=== PATIENT | male | born 1950 | race Caucasian/White ===

== ENCOUNTER 2020-01-15 07:30 | Outpatient (CLI) | payer MEDICARE, BC, SELFPAY ==
--- NOTE | 2020-01-15 07:44 | ECHO_ITS ---
Patient Info Name: Fransico Levin Age: 69 years : 1950 Gender: Male Ht: 70 in Wt: 193 lbs BSA: 2.10 m2 HR: 53 bpm BP: 137 / 88 mmHg Heart Rhythm: Sinus Rhythm Technical Quality: Good Exam Date: 01/15/2020 7:56 AM Exam Location: [facility] Patient Status: Outpatient Admit Date: 01/15/2020 Staff Ordering Physician: Joselin Serna NP Auction Clerk: Elaine Sheets RDCS Attending Provider: Joselin Serna NP Referring Physician: Kareem NORTH; Exam Type: CA echo doppler color flow Study Info Indications R42 - Dizziness and giddiness Complete two-dimensional, color flow and Doppler transthoracic echocardiogram is performed. Summary 1. Left ventricular chamber dimension is normal. 2. Left ventricular systolic function is normal, estimated at 55-60%. 3. The left ventricular diastolic function is grade II diastolic dysfunction. 4. E/e' 10 is mildly elevated. 5. Left atrial chamber dimension is mildly enlarged. 6. The mitral valve has mildly calcified annulus. 7. There is trace mitral valve regurgitation. 8. No pulmonary hypertension, estimated pulmonary arterial systolic pressure is 32 mmHg. 9. There is mild pulmonic regurgitation. 10. The aortic root size at the sinus of Valsalva is mildly dilated at 4.2 cm. Left Ventricle E/e' 10 is mildly elevated. Left ventricular chamber dimension is normal. Left ventricular systolic function is normal, estimated at 55-60%. The left ventricular diastolic function is grade II diastolic dysfunction. Right Ventricle Right ventricular chamber dimension is normal. Right ventricular systolic function is normal. Left Atria Left atrial chamber dimension is mildly enlarged. Right Atria Right atrial chamber dimension is normal. Aortic Valve The aortic valve is trileaflet. There is no aortic valve stenosis. There is no aortic valve regurgitation. Pulmonic Valve There is mild pulmonic regurgitation. Mitral Valve The mitral valve has mildly calcified annulus. There is no mitral valve stenosis. There is trace mitral valve regurgitation. Tricuspid Valve There is no tricuspid valve regurgitation. No pulmonary hypertension, estimated pulmonary arterial systolic pressure is 32 mmHg. Pericardium/Pleural There is no pericardial effusion. Inferior Vena Cava Normal inferior vena cava with >50% collapse upon inspiration consistent with normal right atrial pressure, 5 mmHg. Aorta The aortic root size at the sinus of Valsalva is mildly dilated at 4.2 cm. Left Ventricular Outflow Tract Name Value Normal LVOT 2D LVOT Diameter 2.3 cm LVOT Doppler LVOT Peak Gradient 4 mmHg LVOT Mean Gradient 2 mmHg LVOT VTI 22 cm LVOT VTI/AV VTI Ratio 0.7 LVOT Stroke Volume 89 ml LVOT CO 15.5 l/min LVOT CI 7.4 l/min/m2 Pulmonic Valve Name
== END 2020-01-15 07:31 | disposition home or self-care (01) ==
PROVIDERS: PCP Internal Medicine; Visit Provider Nurse Practitioner
DX: R42 Dizziness and giddiness (principal); R00.2 Palpitations
CPT/HCPCS: 93306

== ENCOUNTER 2020-02-04 08:51 | Outpatient (CLI) | payer MEDICARE, BC, SELFPAY ==
--- NOTE | 2020-02-07 12:44 | WPDHOLTEREM ---
Holter/Event Monitor Holter/Event Monitor Date of procedure: 02/04/20 Procedure Type: 48 hour holter monitor Indications: Palpitations Conclusion: 1. 48 hour holter monitor on 02/04/20. 2. Predominant rhythm is sinus rhythm. HR range 40-106 bpm; average HR 62 bpm. 3. There are 222 premature supraventricular complexes, 11 supraventricular couplets. There is one supraventricular tachycardia at 148 bpm lasting 4 beats. 4. There are 955 premature ventricular complexes, 33 ventricular couplets, 1 ventricular triplet, 17,479 ventricular bigeminy and 4 ventricular trigeminy. No ventricular tachycardia. 1 episode of 4 beats of polymorphic PVC's with average HR 101 bpm. 5. No sinoatrial or atrioventricular blocks. No sigificant pauses greater than 2 seconds. 6. Patient reports symptoms of palpitations, dizziness which demonstrate sinus rhythm, HR range 47-86 bpm and majority had ventricular bigeminy.
== END 2020-02-04 08:52 | disposition home or self-care (01) ==
PROVIDERS: PCP Internal Medicine; Visit Provider Internal Medicine Cardiovascular Disease
DX: R00.2 Palpitations (principal)
CPT/HCPCS: 93225; 93226

== ENCOUNTER 2020-03-02 09:51 | Outpatient (CLI) | payer MEDICARE, BC, SELFPAY ==
--- NOTE | 2020-03-02 09:56 | EST_ITS ---
Patient Info Name: Fransico Levin Age: 69 years : 1950 Gender: Male Ht: 70 in Wt: 194 lbs BSA: 2.10 m2 Exam Date: 03/02/2020 10:41 AM [facility] Patient Status: Outpatient Admit Date: 03/02/2020 Staff Ordering Physician: Stanley Padron DO Litigation Specialist: Abigail Simmons RDCS Attending Provider: STANLEY PADRON DO Referring Physician: Sunil HOBSON; Exercise Technologist: Joleen Flores RDCS Exercise Physician: Stanley Padron DO Exam Type: CA stress echo Study Info Indications R00.2 - Palpitations Treadmill exercise stress echocardiogram is performed. Summary 1. 1. Negative Yuval exercise stress test for ischemic ST changes by ECG criteria. 2. 2. Good functional capacity, achieving 12 METs of workload. 3. 3. Slow HR response to exercise, probably due to beta blockade. 4. 4. Appropriate HR recovery at 1 minute post exercise. 5. 5. Negative stress echocardiogram for ischemia by wall motion analysis. 6. 6. Patient informed of the above results. Stress Echo Findings Left Ventricle Appropriate increase in LV endocardial thickening with systole. Appropriate augmentation of contractility with systole. No wall motion abnormality. Left Ventricle Normal LV systolic function, no wall motion abnormality. Protocol: Yuval Stress ECG Details Stage: REST Duration (min): 5 min : 2 sec Speed (mph): 0.0 Grade (%): 0 HR (bpm): 42 SBP (mmHg): 114 DBP (mmHg): 74 METS: --- Stage: REST Duration (min): 18 min : 39 sec Speed (mph): 0.0 Grade (%): 0 HR (bpm): 48 SBP (mmHg): 114 DBP (mmHg): 74 METS: --- Stage: STAGE 1 Duration (min): 1 min : 0 sec Speed (mph): 1.7 Grade (%): 10 HR (bpm): 65 SBP (mmHg): 114 DBP (mmHg): 74 METS: --- Stage: STAGE 1 Duration (min): 2 min : 0 sec Speed (mph): 1.7 Grade (%): 10 HR (bpm): 75 SBP (mmHg): 114 DBP (mmHg): 74 METS: --- Stage: STAGE 1 Duration (min): 3 min : 0 sec Speed (mph): 1.7 Grade (%): 10 HR (bpm): 75 SBP (mmHg): 127 DBP (mmHg): 58 METS: --- Stage: STAGE 2 Duration (min): 1 min : 0 sec Speed (mph): 2.5 Grade (%): 12 HR (bpm): 83 SBP (mmHg): 127 DBP (mmHg): 58 METS: --- Stage: STAGE 2 Duration (min): 2 min : 0 sec Speed (mph): 2.5 Grade (%): 12 HR (bpm): 91 SBP (mmHg): 127 DBP (mmHg): 59 METS: --- Stage: STAGE 2 Duration (min): 3 min : 0 sec Speed (mph): 2.5 Grade (%): 12 HR (bpm): 94 SBP (mmHg): 127 DBP (mmHg): 59 METS: --- Stage: STAGE 3 Duration (min): 1 min : 0 sec Speed (mph): 3.4 Grade (%): 14 HR (bpm): 100 SBP (mmHg): 157 DBP (mmHg): 61 METS: --- Stage: STAGE 3 Duration (min): 2 min : 0 sec Speed (mph): 3.4 Grade (%): 14 HR (bpm): 99 SBP (mmHg): 157 DBP (mmHg): 61 METS: --- Stage: STAGE 3 Duration (min): 3 min : 0 sec Speed (mph): 3.4 Grade (%): 14 H
== END 2020-03-02 09:52 | disposition home or self-care (01) ==
LOC: ANHCARD 09:52
PROVIDERS: PCP Internal Medicine; Visit Provider Internal Medicine Cardiovascular Disease
DX: R00.2 Palpitations (principal)
CPT/HCPCS: 93351

== ENCOUNTER 2021-04-02 14:52 | Outpatient (RCR) | payer MEDICARE, BC, SELFPAY ==
--- NOTE | 2021-04-02 15:43 | PTOPEVAL ---
PHYSICAL THERAPY EVALUATION/DISCHARGE Thank you for referring Fransico Levin to [facility].? The patient was evaluated for the dx of BPPV and discharged after assessment due to full recovery of symptoms. Please review, sign, date and return this plan of care BETH. I agree with and certify that the following plan of care is medically necessary. Referring Physician Date Admitting Provider: Attending Provider: Joselin Serna NP Referring Provider: *PT Outpatient Evaluation/Discharge Start: 04/02/21 14:10 Freq: Status: Active Protocol: Document 04/02/21 15:03 MLV (Rec: 04/02/21 15:29 MLV [id number]) Therapy Assessment Status Assessment Status Assessment Status Evaluation Evaluation Information Problem Diagnosis Dizziness Onset 1 month ago Cause no trauma Additional Evaluation Detail Pt woke up and the room started spinning. It lasted less than a minute. The pt had another event in the shower the next am that was also short lived. The patient has had a few more since then. The pt went to the MD; and took meclazine and did the exercise given by the MD. The pt has been clear of symptoms since then w/o meds or exercise but wanted to be assessed to assure no reoccurrences. Subjective Information Pt is retired, and rides a Query Text:As Reported By Patient/ bicycle regularly (outdoor) Family and has not had any symptoms with riding. Diagnostic Tests MRI For This Problem Yes: brain clear Pain Assessment Timing of Pain Assessment Timing of Pain Assessment Assessment Self Report Self Report Pain Level 0 Pain Score Pain Score 0: Self Report Upper Extremity Range of Motion General Upper Extremity Range of Motion Reason Not Measured WFL/Left,WFL/Right Lower Extremity Range of Motion General Lower Extremity Range of Motion Reason Not Measured WFL/Left,WFL/Right Lower Extremity Muscle Strength Testing General Lower Extremity Strength Reason Not Measured WNL/Left,WNL/Right Upper Extremity Muscle Strength Testing General Upper Extremity Strength Reason Not Measured WNL/Left,WNL/Right Gait Assessment Gait Pattern Assessment Gait Pattern No Deviations/Normal Vestibular Evaluation Vestibular Medical Information Past Vestibular History Cardiac Changes Medical History Comments on meds for heart and is
== END 2021-06-16 08:54 | disposition home or self-care (01) ==
LOC: ANHPT 14:52
PROVIDERS: PCP Internal Medicine; Visit Provider Nurse Practitioner
DX: R42 Dizziness and giddiness (principal)
CPT/HCPCS: 97161

== ENCOUNTER → 2021-05-08 02:40 | Outpatient (CLI) | payer MEDICARE, BC, SELFPAY ==
[2021-05-08 19:28] LABS: SARS-CoV-2 RNA PCR Negative
== END ==
PROVIDERS: PCP Internal Medicine; Visit Provider Nurse Practitioner
DX: Z20.822 Contact with and (suspected) exposure to COVID-19 (principal); R09.89 Other specified symptoms and signs involving the circulatory and respiratory systems
CPT/HCPCS: C9803; U0003; U0005

== ENCOUNTER → 2021-10-15 07:44 | Outpatient (CLI) | payer MEDICARE, BC, SELFPAY ==
--- NOTE | ~2021-10-15 | MR_ITS ---
EXAMINATION: MR lumbar spine wo [facility] EXAM DATE: 10/15/2021 08:22 INDICATION: Chronic right sided low back pain without sciatica. TECHNIQUE: Multi-sequential, multiplanar MR images of the lumbar spine were obtained without contrast . Sagittal T1, T2, T2 fat saturation images. Axial T2 weighted images. Comparison is made to prior examination from 03/23/2015. FINDINGS: Moderate to severe disc disease at L3-4 and L4-5, mild at the other lumbar levels. Moderate disc disease at T11-12. Mild upper lumbar dextroscoliosis, lower lumbar levoscoliosis. There are mil d subacute appearing compression fractures at the L3-4 and L4-5 endplates. The conus medullaris termi nates at the L1 level and has normal signal intensity and morphology. Paraspinal soft tissue is unre markable. Fluid signal intensity lesion superior pole left kidney measuring 2 cm. Level by level evaluation: T12-L1: There is a minimal diffuse disc bulge. Facet arthropathy: Minimal. Neural foraminal stenosis: No stenosis. Central canal stenosis: No stenosis. L1-L2: Disc does not extend beyond the endplate margin. Facet arthropathy: Minimal. Neural foraminal stenosis: No stenosis. Central canal stenosis: No stenosis. L2-L3: There is a mild to moderate diffuse disc bulge. Facet arthropathy: Mild to moderate. Neural foraminal stenosis: Mild bilateral. Central canal stenosis: Mild. L3-L4: There is a moderate diffuse disc bulge. Facet arthropathy: Moderate . Ligamentum flavum enlargement. Neural foraminal stenosis: Moderate to severe left, mild to moderate right. Central canal stenosis: Moderate. L4-L5: There is a moderate to large diffuse disc bulge. Facet arthropathy: Moderate . Ligamentum flavum enlargement. Neural foraminal stenosis: Severe right moderate left. Central canal stenosis: Moderate to severe. L5-S1: There is a mild diffuse disc bulge. Facet arthropathy: Mild. Neural foraminal stenosis: No stenosis. Central canal stenosis: No stenosis. Compared to 2014, significant interval progression spondylosis. IMPRESSION: 1. Advanced spondylosis L3-4 and L4-5 with the right L4-5 neural foramina most narrowed followed by the left L3-4 neural foramina. 2. Mild subacute appearing compression fractures L3-4 and L4-5 endplates. 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
== END ==
PROVIDERS: PCP Internal Medicine
DX: M54.50 Low back pain, unspecified (principal); G89.29 Other chronic pain; M47.816 Spondylosis without myelopathy or radiculopathy, lumbar region; M48.56XA Collapsed vertebra, not elsewhere classified, lumbar region, initial encounter for fracture
CPT/HCPCS: 72148

== ENCOUNTER 2022-10-03 14:07 | Outpatient (CLI) | payer MEDICARE, OTHER, SELFPAY ==
[2022-10-03 16:00] LABS: Influenza A QL RT-PCR Negative (Negative); Influenza B QL RT-PCR Negative (Negative)
== END 2022-10-03 14:08 | disposition home or self-care (01) ==
PROVIDERS: PCP Internal Medicine; Visit Provider Clinical Nurse Specialist
DX: R68.89 Other general symptoms and signs (principal)
CPT/HCPCS: 87502

== ENCOUNTER 2023-12-29 10:43 | Outpatient (CLI) | payer MEDICARE, OTHER, SELFPAY ==
--- NOTE | ~2023-12-29 | XR_ITS ---
Right Knee Technique: AP, lateral, and sunrise views were obtained. Clinical History: Pain Findings: No fracture or dislocation is seen. Osseous alignment is anatomic. Minimal degenerative spu rring noted. Soft tissues are unremarkable. No joint effusion is seen. Impression: Minimal degenerative spurring. Reviewed, dictated and finalized at location . Impression: Minimal degenerative spurring.
== END 2023-12-29 10:44 | disposition home or self-care (01) ==
LOC: ANHIMG 10:44
PROVIDERS: PCP Internal Medicine; Visit Provider Orthopaedic Surgery
DX: M25.561 Pain in right knee (principal)
CPT/HCPCS: 73564